=== PATIENT | male | born 1990 | race Hispanic/Latino ===

== ENCOUNTER 2018-08-13 10:00 | Emergency (ER) | payer SELFPAY ==
[~2018-08-13] VITALS: Ht 157.5 cm; Wt 65.0 kg
[2018-08-13 11:10] VITALS: BP 141/66
== END 2018-08-13 11:08 | DRG 563 ==
LOC: ED 10:00
DX: S92.421B Displaced fracture of distal phalanx of right great toe, initial encounter for open fracture (principal); W31.2XXA Contact with powered woodworking and forming machines, initial encounter